=== PATIENT | male | born 1965 | race Caucasian/White ===

== ENCOUNTER 2017-09-22 01:53 | Day surgery (SDC) | payer BC ==
[2017-09-19 16:03] VITALS: BP 120/83
--- NOTE | 2017-09-19 16:16 | PCM.EKG ---
[facility] Test Date: 2017-09-19 Test Time: 16:06:21 Pat Name: DUSTY MATTHEWS Department: Patient ID: 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 Reading MD: Cecilia Allen Measurements Intervals [place] Rate: 81 P: 52 CO: 156 QRS: 15 QRSD: 102 T: 29 QT: 380 QTc: 441 Interpretive Statements Normal sinus rhythm Normal ECG No previous ECG available for comparison Electronically Signed On 09-26-2017 11:55:25 DATASTAGE DEVELOPER by Cecilia Allen Please click the below link to view image of tracing.
[2017-09-19 16:32] LABS: BASOPHIL # 0.1 10^3/uL (0.0-0.1); BASOPHIL % 0.5 % (0.0-0.2); EOSINOPHIL # 0.2 10^3/uL (0.0-0.2); EOSINOPHIL % 1.6 % (0.0-5.0); HEMOGLOBIN 15.2 g/dL (13.9-16.3); LYMPHOCYTES # 2.3 10^3/uL (1.0-4.8); LYMPHOCYTES % 22.6 % (24.0-44.0); MEAN CELL HGB 30.6 pg (26-34); MEAN CELL HGB CONCENTRATION 33.1 g/dL (33-37); MEAN CORP VOLUME 92.5 fL (78-100); MONOCYTES # 0.9 10^3/uL (0.3-0.8); MONOCYTES % 8.5 % (5.0-12.0); NEUTROPHIL # 6.9 10^3/uL (1.8-7.7); NEUTROPHILS % 66.6 % (41.0-85.0); RED CELL DISTRIBUTION WIDTH 13.2 % (11.5-14.5); WHITE BLOOD CELL 10.3 10^3/uL (4.5-11.0)
[2017-09-19 17:40] LABS: CALCIUM 8.7 mg/dL (8.4-10.5); CARBON DIOXIDE 26.3 mmol/L (20.0-32)
[~2017-09-22] VITALS: Ht 182.9 cm; Wt 117.5 kg
[2017-09-22] VITALS (9 sets, daily range): BP systolic 134–157; BP diastolic 88–99
[~2017-09-22 01:53] MED LIST: ACET-685 PO; AMLO5TAB2 PO; CALC-76 PO; CETI10TA24 PO; CIPR500T86 PO; LEVO200T5 PO; LEVO25TA4 PO; LOSA1TAB22 PO; MULT-632 PO; OMEP20TA62 PO; PRAS50CA PO; PSYL1CAP5 PO; TEST200V3 IM; TRAM50TA PO; UBID1CAP PO
[2017-09-22] MEDS ORDERED: LASIX ONE (05:24)
[2017-09-22] MEDS ORDERED: LACTATED RINGERS 1,000 ML ONE (05:24)
[2017-09-22] MEDS ORDERED: DECADRON ONE (06:53)
[2017-09-22] MEDS ORDERED: TORADOL ONE (06:53)
[2017-09-22] MEDS ORDERED: XYLOCAINE ONE (06:53)
[2017-09-22] MEDS ORDERED: ZOFRAN ONE (06:53)
[2017-09-22] MEDS ORDERED: VERSED ONE (06:54)
[2017-09-22] MEDS ORDERED: SUBLIMAZE ONE (06:54)
[2017-09-22] MEDS ORDERED: DIPRIVAN IV ONE (06:55)
[2017-09-22] MEDS ORDERED: LACTATED RINGERS 1,000 ML IV SCH ×2 (09:00→11:30)
[2017-09-22] MEDS ORDERED: LASIX IV ONE (11:00)
[2017-09-22] MEDS ORDERED: NORCO 7.5MG PO PRN (11:30)
[2017-09-22] MEDS ORDERED: LASIX IV SCH (11:30)
[2017-09-22] MEDS ORDERED: TAMS0.4C2 PO (11:34)
--- NOTE | 2017-09-22 11:47 | OPH ---
DATE OF SURGERY: 09/22/2017 PREOPERATIVE DIAGNOSIS: Left renal calculi. FINAL DIAGNOSIS: Left renal calculi. PROCEDURE: Left ESWL. DESCRIPTION OF PROCEDURE: The patient was brought to the lithotripsy room and was put in the supine position on the lithotripsy table. A left preop renal ultrasound was initially performed, which revealed 2 stones in the left kidney, one in the mid lower pole measuring 5.1 mm in diameter and another stone in the middle pole measuring 4.7 mm in diameter. There was no evidence of hydronephrosis, no obstruction, and no cysts or masses noted. After the patient was given an LMA general anesthesia and after localization of the stone with the use of ultrasound and fluoroscopy, a left ESWL was then performed using the Dornier Compact Delta II Lithotripter. A total of 1500 shockwaves were delivered to the stones in different locations in the left kidney under ultrasound guidance. After fragmentation of the stone as noted in the ultrasound, the procedure was terminated. The patient was awakened and was transferred to the recovery room in a stable condition. Ilia Gomes MD DR: KVNG/vilma JOB# [id number]
[2017-09-22] MEDS ORDERED: SUBLIMAZE IV PRN (12:00)
== END 2017-09-22 12:15 | disposition home or self-care (01) | DRG 694 ==
LOC: SDC 01:53
PROVIDERS: ATTEND Urology
DX: N20.0 Calculus of kidney (principal); E03.9 Hypothyroidism, unspecified; I10 Essential (primary) hypertension; E66.9 Obesity, unspecified; Z88.8 Allergy status to other drugs, medicaments and biological substances; Z79.899 Other long term (current) drug therapy; Z90.49 Acquired absence of other specified parts of digestive tract; Z98.890 Other specified postprocedural states
CPT/HCPCS: 36415; 50590; 80048; 85025; 85610; 85730; 93005; J1100; J1885; J2250; J2405; J3010; J3490 ×2; J7120; J1940

== ENCOUNTER 2017-10-20 04:09 | Day surgery (SDC) | payer BC ==
[~2017-10-20] VITALS: Ht 182.9 cm; Wt 117.5 kg
[2017-10-20] VITALS (8 sets, daily range): BP systolic 119–149; BP diastolic 80–95
[~2017-10-20 04:09] MED LIST changes: +TAMS0.4C2 PO
[2017-10-20] MEDS ORDERED: LACTATED RINGERS 1,000 ML ONE (05:19)
[2017-10-20] MEDS ORDERED: LASIX ONE (05:19)
[2017-10-20] MEDS ORDERED: LACTATED RINGERS 1,000 ML IV SCH ×3 (07:00→11:30)
[2017-10-20] MEDS ORDERED: LASIX IV ONE (08:00)
[2017-10-20] MEDS ORDERED: ZOFRAN ONE (10:46)
[2017-10-20] MEDS ORDERED: DECADRON ONE (10:46)
[2017-10-20] MEDS ORDERED: SUBLIMAZE ONE (10:47)
[2017-10-20] MEDS ORDERED: VERSED ONE (10:47)
[2017-10-20] MEDS ORDERED: DIPRIVAN IV ONE (10:47)
[2017-10-20] MEDS ORDERED: SUBLIMAZE IV PRN (11:30)
[2017-10-20] MEDS ORDERED: NORCO 7.5MG PO PRN (11:30)
[2017-10-20] MEDS ORDERED: DEMEROL IV PRN (11:30)
--- NOTE | 2017-10-20 12:15 | OPH ---
DATE OF SURGERY: 10/20/2017 PREOPERATIVE DIAGNOSIS: Right renal calculus. FINAL DIAGNOSIS: Right renal calculus. PROCEDURES: Right ESWL. DESCRIPTION OF PROCEDURE: The patient was brought to the lithotripsy room and was put in the supine position on the lithotripsy table. Right preop renal ultrasound was initially performed which revealed a calculus in the lower pole of the right kidney measuring 7.5 mm in diameter. There was no evidence of obstruction and no cysts or masses noted. After the patient was given LMA general anesthesia and after localization of the stone with the use of ultrasound and fluoroscopy, right ESWL was then performed using the Dornier Compact Delta II Lithotripter. A total of 1500 shockwaves were delivered to the stones in the right kidney under ultrasound guidance. After fragmentation of the stone as noted in the ultrasound, the procedure was terminated. The patient was then awakened and transferred to the recovery room in a stable condition. Ilia Gomes MD DR: KVNG/vilma JOB# [id number]
== END 2017-10-20 12:09 | disposition home or self-care (01) | DRG 694 ==
LOC: SURG 04:09
PROVIDERS: ATTEND Urology
DX: N20.0 Calculus of kidney (principal); E66.9 Obesity, unspecified; I10 Essential (primary) hypertension; E03.9 Hypothyroidism, unspecified; Z68.35 Body mass index [BMI] 35.0-35.9, adult; Z98.890 Other specified postprocedural states; Z90.49 Acquired absence of other specified parts of digestive tract; F17.210 Nicotine dependence, cigarettes, uncomplicated; Z88.8 Allergy status to other drugs, medicaments and biological substances
CPT/HCPCS: 50590; J1100; J2250; J2405; J3010; J3490; J7120; J1940

== ENCOUNTER 2017-10-30 15:25 | Emergency (ER) | payer BC ==
[~2017-10-30] VITALS: Ht 182.9 cm; Wt 111.1 kg
--- NOTE | 2017-10-30 16:01 | NUR ---
LAB LAB WORK DRAWN IN TRIAGE. PATIENT TO XRAY.
--- NOTE | 2017-10-30 16:06 | NUR ---
ROOM PATIENT BACK TO ER3 FROM XRAY
--- NOTE | 2017-10-30 16:10 | DIREP ---
PROCEDURE:CHEST 2 VIEWS COMPARISON:None. INDICATIONS:COUGH CONGESTION FINDINGS: LUNGS/PLEURA:No significant pulmonary parenchymal abnormalities. No effusions. VASCULATURE:Normal. Unremarkable pulmonary vasculature. CARDIAC:Normal. No cardiac silhouette abnormality or cardiomegaly. MEDIASTINUM:Normal. No visible mass or adenopathy. BONES: Cervical spine surgical hardware. OTHER:Negative. CONCLUSION: 1. No acute cardiopulmonary abnormality. Dictated by: Reji Pan Jr. on 10/30/2017 at 04:09 PM
[2017-10-30 16:12] LABS: BASOPHIL # 0.1 10^3/uL (0.0-0.1); BASOPHIL % 0.7 % (0.0-0.2); EOSINOPHIL # 0.1 10^3/uL (0.0-0.2); EOSINOPHIL % 1.6 % (0.0-5.0); HEMOGLOBIN 15.4 g/dL (13.9-16.3); LYMPHOCYTES # 2.4 10^3/uL (1.0-4.8); LYMPHOCYTES % 27.8 % (24.0-44.0); MEAN CELL HGB CONCENTRATION 32.7 g/dL (33-37); MEAN CORP VOLUME 91.8 fL (78-100); MEAN PLATELET VOLUME 9.8 fL (7.8-11.0); MONOCYTES # 0.8 10^3/uL (0.3-0.8); MONOCYTES % 8.7 % (5.0-12.0); NEUTROPHIL # 5.3 10^3/uL (1.8-7.7); NEUTROPHILS % 61.1 % (41.0-85.0); RED CELL DISTRIBUTION WIDTH 12.9 % (11.5-14.5); WHITE BLOOD CELL 8.7 10^3/uL (4.5-11.0)
[2017-10-30 16:35] LABS: CARBON DIOXIDE 22.6 mmol/L (20.0-32)
--- NOTE | 2017-10-30 18:33 | ER.PDOC ---
General Chief Complaint: General Complaint Stated Complaint: KIDNEY PROBLEMS Time seen by MD: 18:32 Source: patient Exam Limitations: no limitations History of Present Illness Initial Comments Right flank pain for 10 days Severity/Quality: moderate Radiation: no radiation Associated Symptoms: denies symptoms Exacerbated by: nothing Relieved By: nothing Allergies: Coded Allergies: iodine (Unverified Allergy, Severe, Shortness of Breath, 09/19/17) ANAPHALACTIC SHOCK morphine (Unverified Adverse Reaction, Intermediate, ITCHING, 09/19/17) Home Meds Active Scripts Tamsulosin Hcl (TAMSULOSIN HCL) 0.4 Mg Cap.er.24h, 0.4 MG PO DAILY24, #21 Prov:RALEIGH FRASER MD 09/22/17 Tramadol Hcl (TRAMADOL HCL) 50 Mg Tablet, 50 MG PO Q6 Y for PAIN, #20 TABLET Prov:RALEIGH FRASER MD 11/18/16 Reported Medications Omeprazole Magnesium (PRILOSEC OTC) 20 Mg Tablet.dr, 1 TAB PO DAILY Y for INDIGESTION, #30 TAB 3 Refills 09/19/17 Acetaminophen With Codeine (TYLENOL WITH CODEINE #3 TABLET) 1 Each Tablet, 1 TAB PO Q6 Y for PAIN, #30 TAB 09/19/17 Testosterone Cypionate (TESTOSTERONE CYPIONATE) 200 Mg/1 Ml Vial, 200 MG IM EVERY 2 WEEKS, VIAL 11/18/16 Calcium Carb & Cit/Vitamin D3 (CALCIUM + D3 ER TABLET) 1 Each Tablet.er, 1 EACH PO DAILY 11/15/16 Multivitamin (Multi Vitamin Daily) 1 Each Tablet, 1 EACH PO DAILY, TABLET 11/15/16 Ubidecarenone/Vitamin E Mixed (Lrx88-Pqd E 100 mg-10 Unit Sfg) 100 Mg-10 Unit Capsule, 1 EACH PO DAILY, CAPSULE 11/15/16 Psyllium Husk/Ca Carbonate (METAMUCIL PLUS CALCIUM CAPSULE) 1 Each Capsule, 1 EACH PO DAILY, CAPSULE 11/15/16 Cetirizine Hcl (ZYRTEC) 10 Mg Tablet, 1 TAB PO DAILY, #30 TAB 2 Refills 11/15/16 Amlodipine Besylate (AMLODIPINE BESYLATE) 5 Mg Tablet, 1 TAB PO DAILY, #30 TAB 5 Refills 11/15/16 Losartan/Hydrochlorothiazide (LOSARTAN-HCTZ 100-25 MG TAB) 1 Each Tablet, 1 TAB PO DAILY, #30 TAB 5 Refills 11/15/16 Levothyroxine Sodium (LEVOTHYROXINE SODIUM) 200 Mcg Tablet, 1 TAB PO DAILY, #30 TAB 5 Refills 11/15/16 Levothyroxine Sodium (LEVOTHYROXINE SODIUM) 25 Mcg Tablet, 1 TAB PO DAILY, #30 TAB 5 Refills 11/15/16 Vital Signs First Vital Signs Date Time Temp Pulse Resp B/P (MAP) Pulse Ox O2 Delivery O2 Flow Rate FiO2 10/30/17 15:52 98.3 101 16 96 10/30/17 15:59 160/117 (131) Last Vital Signs Date Time Temp Pulse Resp B/P (MAP) Pulse Ox O2 Delivery O2 Flow Rate FiO2 10/30/17 15:59 98.3 101 16 160/117 (131) 96 Past Medical History Medical History: hypertension, other Surgical History: appendectomy, cholecystectomy, neck, shoulder, other Social History Smoking: chew Alcohol Use: rarely Drug Use: none Constitutional: no symptoms reported Respiratory: no symptoms reported Cardiovascular: no symptoms reported Gastrointestinal: see HPI Genitourinary: no symptoms reported Musculoskeletal: no symptoms reported All Other Systems: Reviewed and Negative Physical Exam General Appearance: No Apparent Distress, WD/WN HEENT: PERRL/EOMI, Normal ENT Inspection, TMs Normal, Pharynx Normal Neck: Non-Tender, Full Range of Motion, Supple, Normal Inspection Respiratory: chest non-tender, lungs clear, normal breath sounds, no respiratory distress, no accessory muscle use Cardiovascular: Normal Peripheral Pulses, Regular Rate, Rhythm, No Edema, No Gallop, No JVD, No Murmur Gastrointestinal: Normal Bowel Sounds, Non Tender, Soft Back: CVA Tenderness (R) Extremities: Normal Range of Motion, Non-Tender, Normal Inspection, No Pedal Edema, No Calf Tenderness, Normal Capillary Refill, Pelvis Stable 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, No Motor/Sensory Deficits, Alert, Normal Mood/Affect, Oriented x 3 Skin: Normal Color, Warm/Dry Results/Orders Results/Orders Laboratory Tests Test 10/30/17 15:47 White Blood Count 8.7 10^3/uL (4.5-11.0) Red Blood Count 5.13 10^6/uL (4.50-5.90) Hemoglobin 15.4 g/dL (13.9-16.3) Hematocrit 47.1 % (37.0-53.0) Mean Corpuscular Volume 91.8 fL (78-100) Mean Corpuscular Hemoglobin 30.0 pg (26-34) Mean Corpuscular Hemoglobin Concent 32.7 g/dL (33-37) Red Cell Distribution Width 12.9 % (11.5-14.5) Platelet Count 284 10^3/uL (150-400) Mean Platelet Volume 9.8 fL (7.8-11.0) Neutrophils (%) (Auto) 61.1 % (41.0-85.0) Lymphocytes (%) (Auto) 27.8 % (24.0-44.0) Monocytes (%) (Auto) 8.7 % (5.0-12.0) Neutrophils # (Auto) 5.3 10^3/uL (1.8-7.7) Lymphocytes # (Auto) 2.4 10^3/uL (1.0-4.8) Monocytes # (Auto) 0.8 10^3/uL (0.3-0.8) Absolute Immature Granulocyte (auto 0.01 10^3 u/L (0-2) Eosinophils % 1.6 % (0.0-5.0) Basophils % 0.7 % (0.0-0.2) Basophils # 0.1 10^3/uL (0.0-0.1) Eosinophil Count 0.1 10^3/uL (0.0-0.2) Sodium Level 139 mmol/L (132-145) Potassium Level 3.5 mmol/L (3.6-5.2) Chloride Level 102.0 mmol/L (96-109) Carbon Dioxide Level 22.6 mmol/L (20.0-32) Anion Gap 17.9 Blood Urea Nitrogen 12 mg/dL (7-18) Creatinine 1.09 mg/dL (0.59-1.40) Estimated GFR () 86.6 (>/=60) BUN/Creatinine Ratio 11.0 Glucose Level 132 mg/dL (70-110) Calcium Level 9.0 mg/dL (8.4-10.5) Total Bilirubin 0.4 mg/dL (0.2-1.0) Aspartate Amino Transf (AST/SGOT) 23 U/L (0-35) Alanine Aminotransferase (ALT/SGPT) 44 U/L (12-78) Alkaline Phosphatase 70 U/L (50-136) Total Protein 8.1 g/dL (6.4-8.2) Albumin 4.2 g/dL (3.4-5.0) Globulin 3.9 Percent Immature Gran (Cell Imm) 0.10 % (0.00-0.50) EKG/XRAY/CT/US CT Comments: Bilateral renal stones, no significant change compared to previous CT Course Blood Pressure Systolic: 160 Blood Pressure Diastolic: 117 Blood Pressure Mean: 131 Departure Time of Disposition: 19:39 Disposition: 01 HOME, SELF-CARE Impression: Primary Impression: Calculus of kidney Condition: Stable Referrals: DELORIS BLANDON (PCP) PRIMARY CARE PROVIDER Additional Instructions: Continue pain medication at home F/U with your Urologist in 2-3 days Duration or Time Spent with Pa: 60 mins CHRISTOPHE SOFIA MD Oct 30, 2017 18:33
--- NOTE | 2017-10-30 18:56 | DIREP ---
PROCEDURE:CT ABDOMEN/PELVIS W/O CONTRAST COMPARISON:[facility], CT, CT-ABDOMEN /PELVIS W/O CONTRAST, 11/18/2013, 03:53 PM. [facility], CT, CT ABD/PELVIS W/O, 11/07/2016, 04:40 PM. [facility], CT, CT ABD/PELVIS W/O, 09/14/2017, 11:48 AM. INDICATIONS:Right flank pain, HX of kidney stones TECHNIQUE:Axial images were created through the abdomen and pelvis without intravenous contrast material. Oral contrast was given. Sagittal and coronal reconstructions were performed from source images. FINDINGS: LUNG BASES:Normal. No visible pulmonary or pleural disease. LIVER:Normal. No significant liver lesions are identified. BILIARY:Cholecystectomy clips. PANCREAS:Normal. No lesion, fluid collection, ductal dilatation, or atrophy. SPLEEN:Normal. No enlargement or focal lesion. ADRENALS:Normal. No mass or enlargement. URINARY TRACT:Nonobstructing 3 mm calculus in the lower pole of the left kidney. Nonobstructing 9 mm calculus in the midpole position of the right kidney. No ureteral calculus or obstruction on either side. AORTA/VASCULAR:Normal. No aneurysm. RETROPERITONEUM:Normal. No mass or adenopathy. BOWEL/MESENTERY:Postsurgical changes of the stomach. No intestinal obstruction, free air, or free fluid. Minimal haziness of the central mesenteric fat. Appendix is not visualized. No evidence of appendicitis. ABDOMINAL WALL:Normal. No mass or hernia. PELVIC ORGANS:Prostate gland is within normal limits. No focal pathology of the urinary bladder. BONES:No acute pathology. OTHER:Negative. CONCLUSION: 1. Previous cholecystectomy. 2. Bilateral nonobstructing renal calculi. 3. No significant change when compared to the prior exam. 4. Slight haziness of the central mesenteric fat is not change when compared to multiple studies dating back to 2013, and is probably not clinically significant. Dictated by: Abraham Preston M.D. on 10/30/2017 at 06:49 PM
[2017-10-30 19:58] VITALS: BP 160/117
== END 2017-10-30 19:55 | disposition home or self-care (01) ==
LOC: ER 15:25
DX: N20.0 Calculus of kidney (principal); I10 Essential (primary) hypertension; F17.220 Nicotine dependence, chewing tobacco, uncomplicated; Z88.5 Allergy status to narcotic agent; Z90.49 Acquired absence of other specified parts of digestive tract; Z79.899 Other long term (current) drug therapy; Z88.8 Allergy status to other drugs, medicaments and biological substances
CPT/HCPCS: 36415; 71046; 74176; 80053; 85025; 87040; 99285

== ENCOUNTER 2017-11-03 05:00 | Day surgery (SDC) | payer BC ==
[~2017-11-03] VITALS: Ht 182.9 cm; Wt 117.5 kg
[2017-11-03] MEDS ORDERED: LACTATED RINGERS 1,000 ML ONE ×2 (05:19→09:22)
[2017-11-03] MEDS ORDERED: LASIX ONE (05:19)
[2017-11-03 06:29] VITALS: BP 160/103
[2017-11-03] MEDS ORDERED: LACTATED RINGERS 1,000 ML IV SCH ×2 (07:00→10:00)
[2017-11-03] MEDS ORDERED: VERSED ONE (07:19)
[2017-11-03] MEDS ORDERED: SUBLIMAZE ONE (07:20)
[2017-11-03] MEDS ORDERED: DIPRIVAN IV ONE (07:20)
[2017-11-03] MEDS ORDERED: LASIX IV ONE (08:00)
[2017-11-03] MEDS ORDERED: ZOFRAN ONE (08:18)
[2017-11-03] MEDS ORDERED: DECADRON ONE (08:18)
[2017-11-03] MEDS ORDERED: PHENERGAN IV PRN (09:00)
[2017-11-03] MEDS ORDERED: DILAUDID IV PRN (09:00)
[2017-11-03] MEDS ORDERED: BENADRYL IV PRN (09:00)
[2017-11-03] MEDS ORDERED: ZOFRAN IV PRN (09:00)
[2017-11-03 09:50] VITALS: BP 136/78
[2017-11-03] MEDS ORDERED: NORCO 7.5MG PO PRN (10:00)
[2017-11-03 10:04] VITALS: BP 140/89
[2017-11-03 10:07] VITALS: BP 141/85
[2017-11-03 10:20] VITALS: BP 148/88
--- NOTE | 2017-11-03 10:59 | OPH ---
DATE OF SURGERY: 11/03/2017 PREOPERATIVE DIAGNOSIS: Calculi, right kidney. FINAL DIAGNOSIS: Calculi, right kidney. PROCEDURES: Right ESWL. DESCRIPTION OF PROCEDURE: The patient was brought to the lithotripsy room, was put in supine position on the lithotripsy table. A right preop renal ultrasound revealed multiple fragments of the stone from the previous right ESWL which was noted in the right kidney especially in the lower pole of the right kidney. There is no evidence of obstruction or hydronephrosis, no cysts or masses noted. After the patient was given a LMA general anesthesia and after localization of the stone with the use of an ultrasound and a C-arm fluoroscopy, a right ESWL was then performed using Dornier Compact Delta II Lithotripter. A total of 2500 shockwaves were delivered to the multiple fragments of stones noted mostly in the lower pole of the right kidney and after some more fragmentation of the stones of the residual calculi in the right kidney, the procedure was terminated. The patient was then awakened and was transferred to the recovery room in stable condition. Ilia Gomes MD DR: KVNG/vilma JOB# [id number] MICHELLE
== END 2017-11-03 10:24 | disposition home or self-care (01) | DRG 694 ==
LOC: SURG 05:00
PROVIDERS: ATTEND Urology
DX: N20.0 Calculus of kidney (principal); E03.9 Hypothyroidism, unspecified; I10 Essential (primary) hypertension; E66.9 Obesity, unspecified; Z90.49 Acquired absence of other specified parts of digestive tract; Z88.5 Allergy status to narcotic agent; Z91.09 Other allergy status, other than to drugs and biological substances; F17.210 Nicotine dependence, cigarettes, uncomplicated; Z68.35 Body mass index [BMI] 35.0-35.9, adult; Z98.890 Other specified postprocedural states
CPT/HCPCS: 36415; 50590; 85610; 85730; J1100; J2250; J2405; J3010; J3490; J7120 ×2; J1940

== ENCOUNTER → 2017-12-04 | Outpatient (CLI) | payer BC ==
--- NOTE | 2017-12-04 16:39 | DIREP ---
PROCEDURE:CT ABDOMEN/PELVIS W/O CONTRAST COMPARISON:[facility], CT, CT ABD/PELVIS W/O, 10/30/2017, 06:35 PM. INDICATIONS:FLANK PAIN TECHNIQUE:Axial images were created through the abdomen and pelvis without intravenous contrast material. No oral contrast was administered. Sagittal and coronal reconstructions were performed from source images. FINDINGS: LUNG BASES:Normal. No visible pulmonary or pleural disease. LIVER:Normal. No significant liver lesions are identified. BILIARY:The gallbladder is surgically absent. There is no biliary ductal dilatation. PANCREAS:Normal. No lesion, fluid collection, ductal dilatation, or atrophy. SPLEEN:Normal. No enlargement or focal lesion. ADRENALS:Normal. No mass or enlargement. URINARY TRACT:No hydronephrosis. 6 mm left hilar calcification AORTA/VASCULAR:Normal. No aneurysm. RETROPERITONEUM:Normal. No mass or adenopathy. BOWEL/MESENTERY:Normal. There is no intestinal obstruction, free fluid, free air or mesenteric inflammatory changes. Surgical changes of the stomach. The appendix is not seen. No stranding in the right lower quadrant ABDOMINAL WALL:Normal. No mass or hernia. PELVIC ORGANS:Normal. No visible mass. Pelvic organs appropriate for patient age. BONES:Normal for age. No bony lesion or acute fracture. OTHER:Negative. CONCLUSION:Surgical changes. No acute findings. Dictated by: Reji Logan MD on 12/04/2017 at 04:34 PM
== END | disposition home or self-care (01) ==
LOC: RAD 15:56
PROVIDERS: ATTEND Urology
DX: R10.84 Generalized abdominal pain (principal); R31.29 Other microscopic hematuria
CPT/HCPCS: 74176

== ENCOUNTER 2017-12-15 02:00 | Day surgery (SDC) | payer BC ==
[~2017-12-15] VITALS: Ht 182.9 cm; Wt 117.5 kg
[2017-12-15] MEDS ORDERED: LASIX ONE (04:43)
[2017-12-15] MEDS ORDERED: LACTATED RINGERS 1,000 ML ONE ×2 (04:43→08:53)
[2017-12-15] MEDS ORDERED: LACTATED RINGERS 1,000 ML IV SCH ×2 (06:00→09:00)
[2017-12-15 06:12] VITALS: BP 145/93
[2017-12-15] MEDS ORDERED: DECADRON ONE (06:27)
[2017-12-15] MEDS ORDERED: LIDOCAINE 2% VIAL ONE (06:28)
[2017-12-15] MEDS ORDERED: ZOFRAN ONE (06:28)
[2017-12-15] MEDS ORDERED: SUBLIMAZE ONE (06:28)
[2017-12-15] MEDS ORDERED: DIPRIVAN IV ONE (06:28)
[2017-12-15] MEDS ORDERED: TORADOL ONE (06:28)
[2017-12-15] MEDS ORDERED: VERSED ONE (06:28)
--- NOTE | 2017-12-15 06:28 | PCM.EKG ---
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
[2017-12-15 06:33] LABS: BASOPHIL # 0.1 10^3/uL (0.0-0.1); BASOPHIL % 1.3 % (0.0-0.2); EOSINOPHIL # 0.4 10^3/uL (0.0-0.2); EOSINOPHIL % 6.7 % (0.0-5.0); HEMOGLOBIN 15.3 g/dL (13.9-16.3); LYMPHOCYTES # 1.7 10^3/uL (1.0-4.8); LYMPHOCYTES % 33.1 % (24.0-44.0); MEAN CELL HGB 30.7 pg (26-34); MEAN CELL HGB CONCENTRATION 33.9 g/dL (33-37); MEAN CORP VOLUME 90.4 fL (78-100); MONOCYTES # 0.5 10^3/uL (0.3-0.8); MONOCYTES % 9.4 % (5.0-12.0); NEUTROPHIL # 2.6 10^3/uL (1.8-7.7); NEUTROPHILS % 49.3 % (41.0-85.0); RED CELL DISTRIBUTION WIDTH 12.9 % (11.5-14.5); WHITE BLOOD CELL 5.2 10^3/uL (4.5-11.0)
[2017-12-15 06:44] LABS: CALCIUM 8.8 mg/dL (8.4-10.5)
[2017-12-15 08:34] VITALS: BP 151/99
[2017-12-15 08:49] VITALS: BP 150/90
[2017-12-15 08:50] VITALS: BP 148/91
[2017-12-15] MEDS ORDERED: LASIX IV SCH (09:00)
[2017-12-15] MEDS ORDERED: BENADRYL IV PRN (09:00)
[2017-12-15] MEDS ORDERED: PHENERGAN IV PRN (09:00)
[2017-12-15] MEDS ORDERED: NORCO 7.5MG PO PRN (09:00)
[2017-12-15] MEDS ORDERED: DILAUDID IV PRN (09:00)
[2017-12-15] MEDS ORDERED: SUBLIMAZE IV PRN (09:00)
[2017-12-15] MEDS ORDERED: ZOFRAN IV PRN (09:00)
[2017-12-15 09:10] VITALS: BP 151/88
--- NOTE | 2017-12-15 09:13 | OPH ---
DATE OF SURGERY: 12/15/2017 PREOPERATIVE DIAGNOSIS: Left renal calculi. FINAL DIAGNOSIS: Left renal calculi. PROCEDURE: Left ESWL. DESCRIPTION OF PROCEDURE: The patient was brought to the lithotripsy room, was put in supine position on the lithotripsy table. A left preop renal ultrasound was initially performed, which showed two stones in the middle pole of the left kidney measuring 5.6 mm each in diameter and also one in the upper pole measuring 6.9 mm in diameter. There is no evidence of hydronephrosis, no cysts or masses noted. After the patient was given an LMA general anesthesia and after localization of the stone with the use of an ultrasound and a C-arm fluoroscopy, a left ESWL was then performed using a Dornier Compact Delta II Lithotripter. A total of 2500 shockwaves were delivered to the stones in the left kidney under ultrasound guidance. After fragmentation of the stone as noted in the ultrasound the procedure was terminated. The patient was awakened, was transferred to the recovery room in stable condition. Ilia Gomes MD DR: KVNG/vilma JOB# [id number]
== END 2017-12-15 09:15 | disposition home or self-care (01) | DRG 694 ==
LOC: SURG 02:00
PROVIDERS: ATTEND Urology
DX: N20.0 Calculus of kidney (principal); I10 Essential (primary) hypertension; E66.9 Obesity, unspecified; E03.9 Hypothyroidism, unspecified; F17.210 Nicotine dependence, cigarettes, uncomplicated; Z98.890 Other specified postprocedural states; Z79.899 Other long term (current) drug therapy; Z90.49 Acquired absence of other specified parts of digestive tract; Z88.5 Allergy status to narcotic agent; Z68.35 Body mass index [BMI] 35.0-35.9, adult; Z85.850 Personal history of malignant neoplasm of thyroid
CPT/HCPCS: 36415; 50590; 80048; 85025; 85610; 85730; 93005; J1100; J1885; J2001; J2250; J2405; J3010; J3490; J7120 ×2; J1940